=== PATIENT | male | born 1990 | race Hispanic/Latino ===

== ENCOUNTER 2016-10-09 02:20 | Emergency (ER) | payer MEDICAID, OTHER ==
[2016-10-09 02:37] VITALS: RESP 18
[2016-10-09 02:39] VITALS: BMI 22.7
[2016-10-09] MEDS ORDERED: Sodium Chloride 0.9% 2,000 ML IV STA (02:51)
--- NOTE | 2016-10-09 02:56 | ED PDOC ---
Arrival/HPI - General Chief Complaint: Lower Extremity Problem/Injury Time Seen by Provider: 10/09/16 02:37 Historian: Patient - History of Present Illness Narrative History of Present Illness (Text): 10/09/16 02:51 Chucho Mercado is a 26 year old male who presents to the emergency department for evaluation of 1 day duration of generalized body aches associated with subjective fever and chills. Patient reports he had a cough which has resolved. Denies chest pain, shortness of breath, nausea, vomiting, diarrhea, numbness/ weakness/swelling to lower extremity, urinary symptoms or any other complaints at this time. Time/Duration: Other (1 day) Symptom Course: Unchanged Severity Level: Mild Activities at Onset: Light Past Medical History - Provider Review Nursing Documentation Reviewed: Yes - Infectious Disease Hx of Infectious Diseases: None - Musculoskeletal/Rheumatological Other/Comment: Right shoulder injury 3 years ago - Psychiatric Hx Depression: Yes Hx Substance Use: No Other/Comment: alcohol abuse - Surgical History Other/Comment: LEG SX - Anesthesia Hx Anesthesia: No Hx Anesthesia Reactions: No Hx Malignant Hyperthermia: No - Suicidal Assessment Feels Threatened In Home Enviroment: No Family/Social History - Physician Review Nursing Documentation Reviewed: Yes Family/Social History: No Known Family HX Smoking Status: Light Smoker < 10 Cigarettes Daily Hx Alcohol Use: No Hx Substance Use: No Substance used: marijuana Allergies/Home Meds Allergies/Adverse Reactions: Allergies No Known Allergies Allergy (Verified 12/24/15 01:49) Home Medications: Home Meds Medication Instructions Recorded Confirmed No Known Home Med 10/09/16 10/09/16 Physical Exam - Physical Exam Narrative Physical Exam (Text): - Review of Systems Constitutional: Present: Subjective fever, chills, generalized body aches Eyes: Normal ENT: Normal Respiratory: Present: Cough (resolved) absent: SOB, Sputum Cardiovascular: Normal absent: Chest pain, Palpitations, Syncope Gastrointestinal: Normal absent: Abdominal pain, Diarrhea, Nausea, Vomiting Genitourinary: Normal. absent: Dysuria, Frequency, Hematuria Musculoskeletal: Normal. absent: Arthralgias, Back Pain, Neck Pain Skin: Normal Neurological: Normal absent: Focal Weakness Endocrine: Normal Hemo/Lymphatic: Normal Psychiatric: Normal - Physical exam Patient appears age appropriate, speaking full sentences without difficulty - Systems Exam Head: Present: Atraumatic, Normocephalic Pupils: Present: PERRL Extraocular Muscles: Present: EOMI Conjunctiva: Present: Normal Mouth: Present: Moist Mucous Membranes Neck: Present: Normal Range of Motion. No: MIDLINE TENDERNESS, Paraspinal Tenderness Respiratory/Chest: Present: Clear to Auscultation, Good Air Exchange. No: Respiratory Distress, Accessory Muscle Use, Tachypneic Cardiovascular: Present: Regular Rate and Rhythm, Normal S1, S2, Peripheral Pulses Present. No: Murmurs Abdomen: Present: Normal Bowel Sounds, No: Tenderness, Peritoneal Signs, Rebound, Guarding, Distention Back: Present: Normal Inspection. No: Midline Tenderness, Paraspinal Tenderness Upper Extremity: Present: Normal Inspection. No: Cyanosis, Edema Lower Extremity: Present: Normal Inspection. Neurovascular intact. No: Edema, Erythema, Tenderness, Asymmetry. Neurological: Present: GCS=15, Speech Normal, cranial nerves II through XII fully intact with no cerebellar abnormality, neuro-sensory fully intact. No focal neurological deficits. Skin: Present: Warm, Dry, Normal Color. No: Rashes Lymphatic: Present: OX3, NI, NC Psychiatric: Present: Alert, Oriented x 3, Normal Insight, Normal Concentration Vital Signs Reviewed: Yes Vital Signs Temp Pulse Resp BP Pulse Ox 10/09/16 04:08 99 F 96 H 18 126/78 98 10/09/16 02:49 101.8 F H 10/09/16 02:36 99.7 F H 114 H 18 133/79 97 Temperature: Afebrile Blood Pressure: Normal Pulse: Tachycardic Respiratory Rate: Normal Appearance: Positive for: Well-Appearing, Non-Toxic, Comfortable Pain Distress: None Mental Status: Positive for: Alert and Oriented X 3 Medical Decision Making ED Course and Treatment: 10/09/16 02:57 Impression: A 26 year old male who presents to the ed complaining of generalized body aches with subjective fever, and chills for 1 day. On PE, there is no swelling, erythema or tenderness to the lower extremities. Plan: -- Labs -- Chest X-ray -- IV fluids -- Toradol -- Blood culture -- Urine culture -- Influenza -- Urinalysis -- Reassess and disposition Progress Notes: 10/09/16 04:26 Chest xray interpreted by ED physician shows no pneumothorax, no cardiomegaly, no infiltrates 10/09/16 06:14 Patient's sodium and chloride has been low. Received 2 L of normal saline. On reevaluation patient reported relief, states he feels much better. Requested to be discharged home. Previous records reviewed, she has been in the emergency department for alcohol intoxication Currently pt is ANOx3 to person, place, and time. Has good insight and judgment. Denies suicidal or homicidal ideations. Pt has steady gait, ambulates without difficulty, not slurring speech. Pt able to tolerate PO without any difficulty. Patient denies any complaints at this time. Patient is not tremulous , not tachycardic, no signs or symptoms of alcohol withdrawal. Pt states he understands to return to the ER right away for new or worsening symptoms or for inability to f/u with PMD or specialist as instructed. Patient states that he fully agrees with and understands discharge instructions. States that he agrees with the plan and disposition. Verbalized and repeated discharge instructions and plan. I have given the patient opportunity to ask any additional questions. - Lab Interpretations Lab Results: 10/09/16 03:18 10/09/16 03:18 Lab Results 10/09/16 03:18: WBC 11.0 D, RBC 4.34, Hgb 13.5 L, Hct 38.8 L, MCV 89.4, MCH 31.1, MCHC 34.8, RDW 13.2, Plt Count 223, MPV 9.2, Gran % 82.4 H, Lymph % (Auto ) 5.3 L, Barry % (Auto) 12.0 H, Eos % (Auto) 0.1 L, Baso % (Auto) 0.2, Gran # 9.10 H, Lymph # 0.6 L, Barry # 1.3 H, Eos # 0.0, Baso # 0.02, Sodium 128 L, Potassium 3.9, Chloride 95 L, Carbon Dioxide 25, Anion Gap 12, BUN 21, Creatinine 0.9, Est GFR ( Amer) > 60, Est GFR (Non-Af Amer) > 60, Random Glucose 105, Calcium 9.9, Total Bilirubin 0.9, AST 46, ALT 24, Alkaline Phosphatase 80, Total Protein 8.1, Albumin 4.4, Globulin 3.6, Albumin/Globulin Ratio 1.2 10/09/16 03:10: Influenza Typ A,B (EIA) Negative for flu a/b I have reviewed the lab results: Yes - RAD Interpretation Radiology Orders: 10/09/16 02:51 CHEST PORTABLE [RAD] Stat - Medication Orders Current Medication Orders: Discontinued Medications Sodium Chloride (Sodium Chloride 0.9%) 2,000 mls @ 1,000 mls/hr IV .Q2H STA Stop: 10/09/16 04:50 Last Admin: 10/09/16 03:39 Dose: 1,000 MLS/HR eMAR Start Stop Document 10/09/16 03:39 RJR (Rec: 10/09/16 03:40 [facility] [id number]) Intravenous Solution Start Date 10/09/16 Start Time 03:39 End Date 10/09/16 End time 05:39 Total Infusion Time 120 Ketorolac Tromethamine (Toradol) 15 mg IVP STAT STA Stop: 10/09/16 02:52 Last Admin: 10/09/16 03:40 Dose: 15 MG IVP Administration Document 10/09/16 03:40 RJR (Rec: 10/09/16 03:40 [facility] [id number]) Charges for Administration # of IVP Administrations 1 - Scribe Statement The provider has reviewed the documentation as recorded by the Linda Cedeno Provider Attestation: All medical record entries made by the Linda were at my direction and personally dictated by me. I have reviewed the chart and agree that the record accurately reflects my personal performance of the history, physical exam, medical decision making, and the department course for this patient. I have also personally directed, reviewed, and agree with the discharge instructions and disposition. Disposition/Present on Arrival - Present on Arrival Any Indicators Present on Arrival: No History of DVT/PE: No History of Uncontrolled Diabetes: No Urinary Catheter: No History of Decub. Ulcer: No History Surgical Site Infection Following: None - Disposition Have Diagnosis and Disposition been Completed?: Yes Diagnosis: Arthralgia Disposition: HOME/ ROUTINE Disposition Time: 06:17 Patient Plan: Discharge Condition: GOOD Discharge Instructions (ExitCare): Arthralgia (ED), Alcohol Intoxication (ED) Additional Instructions: PLEASE RETURN TO THE EMERGENCY DEPARTMENT FOR NEW OR WORSENING SYMPTOMS. RETURN RIGHT AWAY IF YOU CANNOT FOLLOW UP WITH YOUR PRIMARY CARE DOCTOR, CLINIC, OR SPECIALIST IN 1-2 DAYS. Referrals: Lizz Cabrera MD [Staff Provider] - Follow up with primary [facility] at [facility] [place] [Outside] - Follow up with primary Alcoholics Anonymous [Outside] - Follow up with primary
[2016-10-09 03:51] LABS: ADD MANUAL DIFF? NO
[2016-10-09 03:58] LABS: BASO # 0.02 [, K/mm3] (0.0-2.0); BASO % 0.2 % (0.0-3.0); EOS % 0.1 % (1.5-5.0); GRAN % 82.4 % (50.0-68.0); HEMATOCRIT 38.8 % (42.0-52.0); LYMPH # 0.6 (1.2-3.4); LYMPH % 5.3 % (22.0-35.0); MEAN CELL VOLUME 89.4 fL (80.0-105.0); MEAN CORPUSCULAR HEMOGLOBIN 31.1 pg (25.0-35.0); MEAN CORPUSCULAR HGB CONC 34.8 g/dl (31.0-37.0); MEAN PLATELET VOLUME 9.2 fl (7.0-11.0); MONO # 1.3 (0.1-0.6); PLATELET COUNT 223 [, 10^3/uL] (120.0-450.0); RED CELL DISTRIBUTION WIDTH 13.2 % (11.5-14.5)
[2016-10-09 04:04] LABS: ALB/GLOB RATIO 1.2 (1.1-1.8); ALKALINE PHOSPHATASE 80 U/L (38-133); ALT/SGPT 24 U/L (7-56); AST/SGOT 46 U/L (15-59); BILIRUBIN,TOTAL 0.9 mg/dL (0.2-1.3); BLOOD UREA NITROGEN 21 mg/dL (7-21); CALCIUM 9.9 mg/dL (8.4-10.5); CARBON DIOXIDE 25 mmol/L (21-33); CHLORIDE 95 mmol/L (98-107); GFR AFRICAN-AMERICAN > 60; GLUCOSE,RANDOM 105 mg/dL (70-110); POTASSIUM 3.9 mmol/L (3.6-5.0); SODIUM 128 mmol/L (132-148); TOTAL PROTEIN 8.1 g/dL (5.8-8.3)
[2016-10-09 04:08] VITALS: BP 126/78; PULSE 96; TEMP 99; O2SAT 98
--- NOTE | 2016-10-09 08:53 | RAD ---
HISTORY: cough COMPARISON: No prior. FINDINGS: LUNGS: No active pulmonary disease. PLEURA: No significant pleural effusion identified, no pneumothorax apparent. CARDIOVASCULAR: Normal. OSSEOUS STRUCTURES: No significant abnormalities. VISUALIZED UPPER ABDOMEN: Normal. OTHER FINDINGS: None. IMPRESSION: No active disease.
== END 2016-10-09 06:26 | disposition home or self-care (01) ==
LOC: ED 02:20
DX: M79.1 Myalgia (principal)
CPT/HCPCS: 71010; 80053; 85025; 87040; 87804; 96361; 96374; 99283; J1885; J7040

== ENCOUNTER 2016-11-05 15:21 | Observation (INO) | payer MEDICAID, OTHER ==
[2016-11-05 15:36] VITALS: TEMP 98.2
[2016-11-05 15:40] VITALS: BMI 25.0
--- NOTE | 2016-11-05 16:11 | ED PDOC ---
Arrival/HPI - General Chief Complaint: Altered Mental Status Time Seen by Provider: 11/05/16 15:40 Historian: EMS EM Caveat: Intoxicated - History of Present Illness Narrative History of Present Illness (Text): 11/05/16 16:05 A 26 year old male, whose past medical history includes alcohol abuse, is brought into the emergency department via EMS for public intoxication. EMS states the patient is drowsy but arousable. HPI and ROS limited due to intoxication. Time/Duration: Prior to Arrival Symptom Onset: Sudden Symptom Course: Unchanged Quality: Other Activities at Onset: Rest Context: Other Past Medical History - Infectious Disease Hx of Infectious Diseases: None - Cardiac Hx Cardiac Disorders: No - Pulmonary Hx Respiratory Disorders: No - Neurological Hx Neurological Disorder: No - HEENT Hx HEENT Disorder: No - Renal Hx Renal Disorder: No - Endocrine/Metabolic Hx Endocrine Disorders: No - Hematological/Oncological Hx Blood Disorders: No - Integumentary Hx Dermatological Disorder: No - Musculoskeletal/Rheumatological Hx Musculoskeletal Disorders: Yes Hx Arthritis: No Other/Comment: Right shoulder injury 3 years ago - Gastrointestinal Hx Gastrointestinal Disorders: No - Genitourinary/Gynecological Hx Genitourinary Disorders: No - Psychiatric Hx Psychophysiologic Disorder: Yes Hx Depression: Yes Hx Substance Use: No (pt denies) Other/Comment: alcohol abuse - Surgical History Hx Musculoskeletal Surgery: Yes Other/Comment: LEG SX - Anesthesia Hx Anesthesia: No Hx Anesthesia Reactions: No Hx Malignant Hyperthermia: No - Suicidal Assessment Feels Threatened In Home Enviroment: No Family/Social History - Physician Review Nursing Documentation Reviewed: Yes Family/Social History: Unknown Family HX Smoking Status: Heavy Smoker > 10 Cigarettes Daily Hx Alcohol Use: Yes Hx Substance Use: No (pt denies) Substance used: marijuana Allergies/Home Meds Allergies/Adverse Reactions: Allergies No Known Allergies Allergy (Verified 11/05/16 15:36) Home Medications: Home Meds Medication Instructions Recorded Confirmed Paroxetine HCl [Paxil] 40 mg PO DAILY 11/05/16 11/05/16 busPIRone [Buspar] 15 mg PO HS 11/05/16 11/05/16 Review of Systems - Review of Systems Systems not reviewed;Unavailable: Intoxicated Physical Exam Vital Signs Reviewed: Yes Vital Signs Temp Pulse Resp BP Pulse Ox 11/05/16 22:00 70 16 120/71 95 11/05/16 20:00 69 16 114/70 96 04/20/17 18:24 87 16 128/80 98 11/05/16 17:42 71 18 128/85 99 11/05/16 16:20 72 16 119/77 98 11/05/16 15:22 98.2 F 78 14 130/83 98 Temperature: Afebrile Blood Pressure: Normal Pulse: Regular Respiratory Rate: Normal Appearance: Positive for: Well-Appearing Pain Distress: None Mental Status: Positive for: other (somnolent but arousable) - Systems Exam Head: Present: Atraumatic, Normocephalic Pupils: Present: Other (dilated pupils) Conjunctiva: Present: Normal Mouth: Present: Moist Mucous Membranes, Other (alcohol on breath) Neck: Present: Normal Range of Motion Respiratory/Chest: Present: Clear to Auscultation, Good Air Exchange. No: Respiratory Distress, Accessory Muscle Use Cardiovascular: Present: Regular Rate and Rhythm, Normal S1, S2. No: Murmurs Abdomen: Present: Normal Bowel Sounds. No: Tenderness, Distention, Peritoneal Signs Back: No: CVA Tenderness Upper Extremity: Present: Normal Inspection. No: Cyanosis, Edema Lower Extremity: Present: Normal Inspection. No: Edema Neurological: Present: Other (unable to perfomr at this time) Skin: Present: Warm, Dry, Normal Color. No: Rashes Psychiatric: Present: Alert, Other (arousable with sternal rub) Medical Decision Making ED Course and Treatment: 11/05/16 16:05 Impression: A 26 year old intoxicated male. Differential Diagnosis include but are not limited to: alcohol abuse Plan: -- Labs -- Urinalysis -- Reassess and disposition pts girlfriend came by and states pt drinks a lot and also has history of depression. did not know of other ingestions. Prior Visits: Notes and results from previous visits were reviewed. The patient last presented to the emergency department on 11/02/16 for public intoxication. ETOH elevated, order thiamine. CT head no acute findings noted pt more arousable but still falls asleep at times [id number] signed out to Dr Mendes pending reeval and dispo 11/05/16 22:25 11/05/16 22:26 - Lab Interpretations Lab Results: 11/05/16 16:00 11/05/16 16:00 Lab Results 11/05/16 16:44: Urine Color Straw, Urine Appearance Clear, Urine pH 6.5, Ur Specific Gardner <= 1.005, Urine Protein Negative, Urine Glucose (UA) Negative, Urine Ketones Negative, Urine Blood Trace-lysed H, Urine Nitrate Negative, Urine Bilirubin Negative, Urine Urobilinogen 0.2, Ur Leukocyte Esterase Negative , Urine RBC 0 - 2, Urine WBC Negative, Ur Epithelial Cells 0 - 2, Urine Bacteria Neg, Urine Opiates Screen Negative, Urine Methadone Screen Negative, Ur Barbiturates Screen Negative, Ur Phencyclidine Scrn Negative, Ur Amphetamines Screen Negative, U Benzodiazepines Scrn Negative, U Oth Cocaine Metabols Negative, U Cannabinoids Screen Negative 11/05/16 16:00: WBC 8.6 D, RBC 4.69, Hgb 14.6, Hct 41.4 L, MCV 88.3, MCH 31.1, MCHC 35.3, RDW 13.3, Plt Count 303, MPV 8.6, Gran % 69.7 H, Lymph % (Auto) 24.3 , Jessamine % (Auto) 4.7, Eos % (Auto) 1.1 L, Baso % (Auto) 0.2, Gran # 5.97, Lymph # 2.1, Jessamine # 0.4, Eos # 0.1, Baso # 0.02, Sodium 144, Potassium 3.5 L, Chloride 103, Carbon Dioxide 27, Anion Gap 18, BUN 8, Creatinine 0.7, Est GFR ( Amer) > 60, Est GFR (Non-Af Amer) > 60, Random Glucose 89, Calcium 9.8, Total Bilirubin 0.6, AST 33, ALT 33, Alkaline Phosphatase 70, Total Protein 8.3 , Albumin 4.5, Globulin 3.8, Albumin/Globulin Ratio 1.2, Salicylates < 1 L, Acetaminophen < 10.0 L, Alcohol, Quantitative 204 H I have reviewed the lab results: Yes - Medication Orders Current Medication Orders: Discontinued Medications Thiamine HCl (Vitamin B1 Tab) 100 mg PO STAT STA Stop: 11/05/16 21:34 ED OBSERVATION Date of observation admission: 11/05/16 Time of observation admission: 16:05 - Observation admission statement Patient is being placed in observation because:: alcohol intoxication - Goals of Observation Goals of observation are:: sobriety - Progress Note Progress Note: 11/05/16 16:30 Patient is resting comfortable. 11/05/16 18:48 Patient alcohol level is elevated. He is resting comfortable and in no acute distress. 11/05/16 21:28 CT Head results reviewed: FINDINGS: Brain: Unremarkable. No hemorrhage. No significant white matter disease. No edema. Normal palma white matter interfaces are present. Ventricles: Unremarkable. No ventriculomegaly. Bones/joints: Unremarkable. No acute fracture. Chronic nasal fractures are present. This Soft tissues: Unremarkable. Sinuses: Unremarkable as visualized. No acute sinusitis. Mastoid air cells: Unremarkable as visualized. No mastoid effusion. IMPRESSION: No acute findings. No bleed, no signs of acute infarct. Study partially limited secondary to motion - Scribe Statement The provider has reviewed the documentation as recorded by the Scribe Dante Bledsoe Provider Scribe Attestation: All medical record entries made by the Scribe were at my direction and personally dictated by me. I have reviewed the chart and agree that the record accurately reflects my personal performance of the history, physical exam, medical decision making, and the department course for this patient. I have also personally directed, reviewed, and agree with the discharge instructions and disposition. Disposition/Present on Arrival - Present on Arrival Any Indicators Present on Arrival: No History of DVT/PE: No History of Uncontrolled Diabetes: No Urinary Catheter: No History of Decub. Ulcer: No History Surgical Site Infection Following: None - Disposition Have Diagnosis and Disposition been Completed?: No Diagnosis: Alcohol intoxication Disposition Time: 22:00 Patient Plan: Transfer To (dr selma melara) Patient Problems: Current Active Problems Problem Status Diagnosed Alcohol intoxication Acute Condition: STABLE
[2016-11-05 16:28] LABS: ADD MANUAL DIFF? NO
[2016-11-05 16:31] LABS: BASO # 0.02 K/mm3 (0.0-2.0); BASO % 0.2 % (0.0-3.0); EOS # 0.1 (0.0-0.7); EOS % 1.1 % (1.5-5.0); GRAN # 5.97 (1.4-6.5); GRAN % 69.7 % (50.0-68.0); HEMATOCRIT 41.4 % (42.0-52.0); LYMPH # 2.1 (1.2-3.4); LYMPH % 24.3 % (22.0-35.0); MEAN CELL VOLUME 88.3 fL (80.0-105.0); MEAN CORPUSCULAR HEMOGLOBIN 31.1 pg (25.0-35.0); MEAN CORPUSCULAR HGB CONC 35.3 g/dl (31.0-37.0); MEAN PLATELET VOLUME 8.6 fl (7.0-11.0); MONO # 0.4 (0.1-0.6); MONO % 4.7 % (1.0-6.0); PLATELET COUNT 303 10^3/uL (120.0-450.0); RED CELL DISTRIBUTION WIDTH 13.3 % (11.5-14.5); WHITE BLOOD COUNT 8.6 10^3/ul (4.5-11.0)
[2016-11-05 16:50] LABS: PH,URINE 6.5 (4.7-8.0); URINE BILIRUBIN NEGATIVE (NEGATIVE); URINE BLOOD TRACE-LYSED (NEGATIVE); URINE GLUCOSE (UA) NEGATIVE (NEGATIVE); URINE KETONE NEGATIVE (NEGATIVE); URINE LEUKOCYTE ESTERASE NEGATIVE Leu/uL (NEGATIVE); URINE PROTEIN NEGATIVE mg/dL (<30 mg/dL); URINE UROBILINOGEN 0.2 E.U./dL (<1 E.U./dL)
[2016-11-05 16:58] LABS: URINE APPEARANCE CLEAR (CLEAR); URINE COLOR STRAW (YELLOW)
[2016-11-05 17:01] LABS: ALB/GLOB RATIO 1.2 (1.1-1.8); ALKALINE PHOSPHATASE 70 U/L (38-133); ALT/SGPT 33 U/L (7-56); AST/SGOT 33 U/L (15-59); BILIRUBIN,TOTAL 0.6 mg/dL (0.2-1.3); BLOOD UREA NITROGEN 8 mg/dL (7-21); CALCIUM 9.8 mg/dL (8.4-10.5); CARBON DIOXIDE 27 mmol/L (21-33); CHLORIDE 103 mmol/L (98-107); GFR AFRICAN-AMERICAN > 60; GLUCOSE,RANDOM 89 mg/dL (70-110); POTASSIUM 3.5 mmol/L (3.6-5.0); SODIUM 144 mmol/L (132-148); TOTAL PROTEIN 8.3 g/dL (5.8-8.3)
[2016-11-05 17:19] LABS: URINE BACTERIA NEG (NEG); URINE EPITHELIAL CELLS 0 - 2 /hpf (0-5); URINE RBC 0 - 2 /hpf (0-2); URINE WBC NEGATIVE /hpf (0-6)
[2016-11-05 23:42] VITALS: BP 138/85; PULSE 80; RESP 18; O2SAT 99
--- NOTE | 2016-11-06 07:09 | CT ---
PROCEDURE: CT HEAD WITHOUT CONTRAST. HISTORY: alcohol intox, somnolent COMPARISON: None available TECHNIQUE: Axial computed tomography images were obtained through the head/brain without intravenous contrast. Radiation dose: Total exam DLP = 774.23 mGy-cm. This CT exam was performed using one or more of the following dose reduction techniques: Automated exposure control, adjustment of the mA and/or kV according to patient size, and/or use of iterative reconstruction technique. FINDINGS: Streak artifact obscures evaluation of the skullbase. HEMORRHAGE: No intracranial hemorrhage. BRAIN: No mass effect or edema. No atrophy or chronic microvascular ischemic changes.Please note that MRI with diffusion imaging is more sensitive in the detection of acute ischemic event. VENTRICLES: No hydrocephalus. CALVARIUM: Unremarkable. PARANASAL SINUSES: Mild bilateral mucosal thickening of the maxillary sinuses. MASTOID AIR CELLS: Unremarkable as visualized. No inflammatory changes. OTHER FINDINGS: Chronic appearing bilateral nasal bone fracture deformities. IMPRESSION: No acute intracranial pathology identified. Preliminary impression was provided by virtual radiologic.
--- NOTE | 2016-11-06 13:32 | CARD ---
APPROVED REPORT EKG Measurement Heart [id number] <Conclusion> Normal sinus rhythm Normal ECG
== END 2016-11-05 21:35 | disposition home or self-care (01) ==
LOC: ED 15:21 → EROBSV 17:32
PROVIDERS: ADMIT Emergency Medicine; ATTEND Emergency Medicine
DX: F10.129 Alcohol abuse with intoxication, unspecified (principal); Y90.7 Blood alcohol level of 200-239 mg/100 ml
CPT/HCPCS: 70450; 80053; 80320; 80324; 80329; 80345; 80346; 80349; 80353; 80358; 80361; 81001; 82948; 83992; 85025; 93005; 99285; G0378

== ENCOUNTER 2016-11-12 15:50 | Observation (INO) | payer OTHER ==
[2016-11-12 15:59] VITALS: BMI 23.0
[2016-11-12 16:07] LABS: ADD MANUAL DIFF? NO
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
[2016-11-12] MEDS ORDERED: Sodium Chloride 0.9% 1,000 ML IV STA ×2 (16:15→18:06)
[2016-11-12 16:28] VITALS: TEMP 98.1
[2016-11-12 16:29] LABS: BASO # 0.02 K/mm3 (0.0-2.0); BASO % 0.2 % (0.0-3.0); EOS # 0.1 (0.0-0.7); EOS % 1.1 % (1.5-5.0); GRAN # 7.52 (1.4-6.5); GRAN % 72.7 % (50.0-68.0); HEMATOCRIT 41.9 % (42.0-52.0); LYMPH # 2.2 (1.2-3.4); LYMPH % 20.9 % (22.0-35.0); MEAN CORPUSCULAR HEMOGLOBIN 31.1 pg (25.0-35.0); MEAN CORPUSCULAR HGB CONC 35.3 g/dl (31.0-37.0); MONO # 0.5 (0.1-0.6); MONO % 5.1 % (1.0-6.0); PLATELET COUNT 241 10^3/uL (120.0-450.0); RED CELL DISTRIBUTION WIDTH 13.3 % (11.5-14.5); WHITE BLOOD COUNT 10.3 10^3/ul (4.5-11.0)
[2016-11-12 16:32] LABS: ALB/GLOB RATIO 1.4 (1.1-1.8); ALKALINE PHOSPHATASE 74 U/L (38-133); ALT/SGPT 37 U/L (7-56); AST/SGOT 109 U/L (15-59); BILIRUBIN,TOTAL 0.6 mg/dL (0.2-1.3); BLOOD UREA NITROGEN 10 mg/dL (7-21); CALCIUM 9.6 mg/dL (8.4-10.5); CARBON DIOXIDE 21 mmol/L (21-33); CHLORIDE 106 mmol/L (98-107); GFR AFRICAN-AMERICAN > 60; GLUCOSE,RANDOM 127 mg/dL (70-110); POTASSIUM 3.6 mmol/L (3.6-5.0); SODIUM 143 mmol/L (132-148)
[2016-11-12 16:34] LABS: INR 1.03 (0.93-1.08); PARTIAL THROMBOPLASTIN TIME 25.6 Seconds (23.7-30.8)
[2016-11-12 16:50] LABS: TROPONIN I < 0.01 ng/mL
[2016-11-12 17:14] LABS: URINE BILIRUBIN NEGATIVE (NEGATIVE); URINE BLOOD SMALL (NEGATIVE); URINE GLUCOSE (UA) NEGATIVE (NEGATIVE); URINE KETONE NEGATIVE (NEGATIVE); URINE LEUKOCYTE ESTERASE NEGATIVE Leu/uL (NEGATIVE); URINE PROTEIN NEGATIVE mg/dL (<30 mg/dL); URINE UROBILINOGEN 0.2 E.U./dL (<1 E.U./dL)
[2016-11-12 17:15] LABS: URINE APPEARANCE CLEAR (CLEAR); URINE COLOR STRAW (YELLOW)
[2016-11-12 17:51] LABS: URINE BACTERIA NEG (NEG); URINE EPITHELIAL CELLS 0 - 2 /hpf (0-5); URINE RBC 0 - 2 /hpf (0-2); URINE WBC 0 - 2 /hpf (0-6)
--- NOTE | 2016-11-12 18:05 | CARD ---
APPROVED REPORT EKG Measurement Heart [id number] <Conclusion> Sinus tachycardia Possible Left atrial enlargement RSR' or QR pattern in V1 suggests right ventricular conduction delay Borderline ECG
--- NOTE | 2016-11-12 18:06 | CT ---
PROCEDURE: CT HEAD WITHOUT CONTRAST. HISTORY: ams COMPARISON: None available. TECHNIQUE: Axial computed tomography images were obtained through the head/brain without intravenous contrast. Radiation dose: Total exam DLP = 725 mGy-cm. This CT exam was performed using one or more of the following dose reduction techniques: Automated exposure control, adjustment of the mA and/or kV according to patient size, and/or use of iterative reconstruction technique. FINDINGS: HEMORRHAGE: No intracranial hemorrhage. BRAIN: No mass effect or edema. No atrophy or chronic microvascular ischemic changes. VENTRICLES: Unremarkable. No hydrocephalus. CALVARIUM: Unremarkable. PARANASAL SINUSES: Unremarkable as visualized. No significant inflammatory changes. MASTOID AIR CELLS: Unremarkable as visualized. No inflammatory changes. OTHER FINDINGS: None. IMPRESSION: Normal CT of the Head.
[2016-11-12 19:29] VITALS: RESP 18
[2016-11-12] MEDS ORDERED: Sodium Chloride 0.9% 1,000 ML IV SCH (23:00)
[2016-11-13 03:24] VITALS: BP 123/75; PULSE 88; O2SAT 95
[2016-11-13 05:43] LABS: BLOOD UREA NITROGEN 12 mg/dL (7-21); CARBON DIOXIDE 27 mmol/L (21-33); CHLORIDE 109 mmol/L (98-107); GFR AFRICAN-AMERICAN > 60; GLUCOSE,RANDOM 81 mg/dL (70-110); POTASSIUM 4.6 mmol/L (3.6-5.0); SODIUM 143 mmol/L (132-148)
--- NOTE | 2016-11-13 08:47 | RAD ---
HISTORY: ams COMPARISON: None available. TECHNIQUE: Chest, one view. FINDINGS: LUNGS: Mild bilateral perihilar prominence. No focal consolidation. Please note that chest x-ray has limited sensitivity for the detection of pulmonary masses. PLEURA: No significant pleural effusion identified. No definite pneumothorax . CARDIOVASCULAR: The cardiomediastinal silhouette appears within normal limits of size. OSSEOUS STRUCTURES: No acute osseous abnormality identified. VISUALIZED UPPER ABDOMEN: Unremarkable. OTHER FINDINGS: None. IMPRESSION: Mild bilateral perihilar prominence.
== END 2016-11-13 06:26 | disposition home or self-care (01) ==
LOC: ED 15:50 → EDBD 16:44 → EROBSV 16:44 → MERGE 16:44
PROVIDERS: ADMIT Emergency Medicine; ATTEND Emergency Medicine
DX: F10.129 Alcohol abuse with intoxication, unspecified (principal); Y90.8 Blood alcohol level of 240 mg/100 ml or more
CPT/HCPCS: 36415; 70450; 71010; 80048; 80053; 80074; 80320; 80324; 80329; 80345; 80346; 80349; 80353; 80358; 80361; 81001; 82550; 82553; 82948; 83615; 83992; 84484; 85025; 85610; 85730; 87390; 93005; 96360; 96361; 99285; G0378; J7040

== ENCOUNTER 2016-11-30 15:41 | Emergency (ER) | payer MEDICAID, OTHER ==
[2016-11-30 15:42] VITALS: BMI 25.0
[2016-11-30 16:07] VITALS: TEMP 98.6
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
[2016-11-30 19:26] VITALS: BP 131/76; PULSE 78; RESP 18; O2SAT 98
== END 2016-11-30 19:29 | disposition home or self-care (01) ==
LOC: ED 15:41
DX: Z72.89 Other problems related to lifestyle (principal)

== ENCOUNTER 2017-02-20 15:52 | Observation (INO) | payer OTHER ==
[2017-02-20 16:28] VITALS: BMI 23.6
--- NOTE | 2017-02-20 17:00 | ED PDOC ---
Arrival/HPI - General Chief Complaint: Alcohol Ingestion Time Seen by Provider: 02/20/17 16:03 Historian: Patient EM Caveat: Intoxicated - History of Present Illness Narrative History of Present Illness (Text): 02/20/17 16:40 A 26 year old male, whose past medical history includes etoh abuse, is brought into the emergency department via EMS due to public intoxication. ROS: limited due to intoxication. Time/Duration: 4-6 hours Symptom Course: Unchanged Activities at Onset: Light Past Medical History - Provider Review Nursing Documentation Reviewed: Yes - Infectious Disease Hx of Infectious Diseases: None - Cardiac Hx Hypertension: No - Pulmonary Hx Respiratory Disorders: No - Neurological Hx Seizures: No - HEENT Hx HEENT Disorder: No - Renal Hx Renal Disorder: No - Endocrine/Metabolic Hx Endocrine Disorders: No - Hematological/Oncological Hx Blood Disorders: No - Integumentary Hx Dermatological Disorder: No - Musculoskeletal/Rheumatological Hx Fractures: Yes - Gastrointestinal Hx Gastritis: Yes - Genitourinary/Gynecological Hx Sexually Transmitted Diseases: No - Psychiatric Hx Anxiety: Yes Hx Depression: Yes Hx Substance Use: No (pt denies) - Surgical History Other/Comment: LEG SX - Anesthesia Hx Anesthesia: Yes Hx Anesthesia Reactions: No - Suicidal Assessment Feels Threatened In Home Enviroment: No Family/Social History - Physician Review Nursing Documentation Reviewed: Yes Family/Social History: No Known Family HX Smoking Status: Heavy Smoker > 10 Cigarettes Daily Hx Alcohol Use: Yes Hx Substance Use: No (pt denies) Substance used: marijuana Allergies/Home Meds Allergies/Adverse Reactions: Allergies No Known Allergies Allergy (Verified 02/20/17 16:25) Home Medications: Home Meds Medication Instructions Recorded Confirmed Paroxetine HCl [Paxil] 40 mg PO DAILY 11/05/16 02/20/17 busPIRone [Buspar] 15 mg PO HS 11/05/16 02/20/17 Review of Systems - Review of Systems Systems not reviewed;Unavailable: Intoxicated Physical Exam - Physical Exam Narrative Physical Exam (Text): PE for 26 year old Chucho Mercado is limited to intoxication. Patient is in no distress and has no evidence of trauma. Physical Exam Limitations: Intoxication Vital Signs Reviewed: Yes Vital Signs Temp Pulse Resp BP Pulse Ox 02/20/17 16:25 98.2 F 81 18 121/68 97 02/20/17 16:24 98.2 F 81 18 121/68 97 Temperature: Afebrile Blood Pressure: Normal Pulse: Regular Respiratory Rate: Normal Appearance: Positive for: Well-Appearing, Non-Toxic, Comfortable Pain Distress: None Mental Status: Positive for: other (Intoxicated ) - Systems Exam Head: Present: Atraumatic, Normocephalic Pupils: Present: PERRL Conjunctiva: Present: Normal Mouth: Present: Moist Mucous Membranes Pharnyx: Present: Normal. No: ERYTHEMA, EXUDATE Neck: Present: Normal Range of Motion Respiratory/Chest: Present: Clear to Auscultation, Good Air Exchange. No: Respiratory Distress, Accessory Muscle Use Cardiovascular: Present: Regular Rate and Rhythm, Normal S1, S2. No: Murmurs Abdomen: Present: Normal Bowel Sounds. No: Tenderness, Distention, Peritoneal Signs Back: Present: Normal Inspection Upper Extremity: Present: Normal Inspection. No: Cyanosis, Edema Lower Extremity: Present: Normal Inspection. No: Edema Neurological: Present: GCS=15, CN II-XII Intact, Speech Normal Skin: Present: Warm, Dry, Normal Color. No: Rashes Psychiatric: Present: Intoxicated Medical Decision Making ED Course and Treatment: 02/20/17 17:04 Impression: A 26 year old intoxicated male. Differential Diagnosis included but are not limited to: Intoxication Plan: -- Reassess and disposition Prior Visits: Notes and results from previous visits were reviewed. Patient was last seen on 02/14/17 for substance abuse and was discharged home. Progress Notes: ED OBSERVATION Discharge: Yes Date of observation admission: 02/20/17 Time of observation admission: 16:35 - Observation admission statement Patient is being placed in observation because:: he is intoxicated and needs observation till sobriety and disposition discernment. - Goals of Observation Goals of observation are:: Sobriety - Progress Note Progress Note: 02/20/17 16:45 Patient is seen for intoxication and is pending sobriety. 02/20/17 18:03 Patient is resting comfortably, still pending sobriety. 02/20/17 20:00 Patient is resting comfortably. 02/20/17 21:15 Patient is signficantly more awake at this time and talkative 02/20/17 21:40 Patient is fully sober, awake, alert, and oriented x 3. His gait is normal with normal speech. No evidence of trauma. No SI or HI - ok for d/c. - PA / [employer] SAL[employer] MANAGER / Resident Statement MD/DO has reviewed & agrees with the documentation as recorded. - Scribe Statement The provider has reviewed the documentation as recorded by the Scribe Anni Rodriguez Provider Scribe Attestation: All medical record entries made by the Scribe were at my direction and personally dictated by me. I have reviewed the chart and agree that the record accurately reflects my personal performance of the history, physical exam, medical decision making, and the department course for this patient. I have also personally directed, reviewed, and agree with the discharge instructions and disposition. Disposition/Present on Arrival - Present on Arrival Any Indicators Present on Arrival: No History of DVT/PE: No History of Uncontrolled Diabetes: No Urinary Catheter: No History of Decub. Ulcer: No History Surgical Site Infection Following: None - Disposition Have Diagnosis and Disposition been Completed?: Yes Diagnosis: Alcohol intoxication Disposition: HOME/ ROUTINE Disposition Time: 21:40 Patient Plan: Discharge Condition: GOOD
[2017-02-20 21:48] VITALS: BP 130/80; PULSE 89; RESP 16; TEMP 98.9
[2017-02-20 21:52] VITALS: O2SAT 98
== END 2017-02-20 21:42 | disposition home or self-care (01) ==
LOC: ED 15:52 → EROBSV 16:35
PROVIDERS: ADMIT Emergency Medicine; ATTEND Emergency Medicine
DX: F10.129 Alcohol abuse with intoxication, unspecified (principal)
CPT/HCPCS: 82948; 99283; G0378

== ENCOUNTER 2017-02-21 03:02 | Observation (INO) | payer OTHER ==
--- NOTE | 2017-02-21 03:04 | ED PDOC ---
Arrival/HPI - General Historian: Patient, EMS - History of Present Illness Time/Duration: Other (tonight) Symptom Onset: Gradual Symptom Course: Unchanged Activities at Onset: Light Context: Street <Bruce Abreu - Last Filed: 02/21/17 06:06> <Jesus Mendes - Last Filed: 02/21/17 12:34> - General Time Seen by Provider: 02/21/17 03:02 - History of Present Illness Narrative History of Present Illness (Text): 02/21/17 03:03 Chucho Mercado is a 26 year old male, whose past medical history includes alcohol abuse, who presents to the Emergency department brought in by EMS for alcohol intoxication. Patient was seen in the Emergency department yesterday for same complaint. Patient denies any fever, chills, chest pain, shortness of breath, nausea, vomiting, diarrhea, urinary symptoms, back pain, neck pain, headache, dizziness, or any other complaints. (Bruce Abreu) Past Medical History - Provider Review Nursing Documentation Reviewed: Yes - Infectious Disease Hx of Infectious Diseases: None - Cardiac Hx Hypertension: No - Pulmonary Hx Respiratory Disorders: No - Neurological Hx Seizures: No - HEENT Hx HEENT Disorder: No - Renal Hx Renal Disorder: No - Endocrine/Metabolic Hx Endocrine Disorders: No - Hematological/Oncological Hx Blood Disorders: No - Integumentary Hx Dermatological Disorder: No - Musculoskeletal/Rheumatological Hx Fractures: Yes - Gastrointestinal Hx Gastritis: Yes - Genitourinary/Gynecological Hx Sexually Transmitted Diseases: No - Psychiatric Hx Anxiety: Yes Hx Depression: Yes Hx Substance Use: No (pt denies) - Surgical History Other/Comment: LEG SX - Anesthesia Hx Anesthesia: Yes Hx Anesthesia Reactions: No - Suicidal Assessment Feels Threatened In Home Enviroment: No <Bruce Abreu - Last Filed: 02/21/17 06:06> Family/Social History - Physician Review Nursing Documentation Reviewed: Yes Family/Social History: Unknown Family HX Smoking Status: Heavy Smoker > 10 Cigarettes Daily Hx Alcohol Use: Yes Hx Substance Use: No (pt denies) Substance used: marijuana <Bruce Abreu - Last Filed: 02/21/17 06:06> Allergies/Home Meds <Bruce Abreu - Last Filed: 02/21/17 06:06> <Jesus Mendes - Last Filed: 02/21/17 12:34> Allergies/Adverse Reactions: Allergies No Known Allergies Allergy (Verified 02/21/17 03:05) Home Medications: Home Meds Medication Instructions Recorded Confirmed Paroxetine HCl [Paxil] 40 mg PO DAILY 11/05/16 02/21/17 busPIRone [Buspar] 15 mg PO HS 11/05/16 02/21/17 Review of Systems - Physician Review All systems were reviewed & negative as marked: Yes - Review of Systems Constitutional: Normal. absent: Fevers Eyes: Normal ENT: Normal Respiratory: Normal. absent: SOB, Cough Cardiovascular: Normal. absent: Chest Pain Gastrointestinal: Normal. absent: Abdominal Pain, Diarrhea, Nausea, Vomiting Genitourinary Male: Normal. absent: Dysuria, Frequency, Hematuria, Urinary Output Changes Musculoskeletal: Normal. absent: Back Pain, Neck Pain Skin: Normal. absent: Rash Neurological: Normal. absent: Headache, Dizziness Endocrine: Normal Hemo/Lymphatic: Normal Psychiatric: Normal <Bruce Abreu - Last Filed: 02/21/17 06:06> Physical Exam Vital Signs Reviewed: Yes Temperature: Afebrile Blood Pressure: Normal Pulse: Regular Respiratory Rate: Normal Appearance: Positive for: Well-Appearing, Non-Toxic, Comfortable Pain Distress: None - Systems Exam Head: Present: Atraumatic, Normocephalic Pupils: Present: PERRL Extroacular Muscles: Present: EOMI Conjunctiva: Present: Normal Mouth: Present: Moist Mucous Membranes Neck: Present: Normal Range of Motion Respiratory/Chest: Present: Clear to Auscultation, Good Air Exchange. No: Respiratory Distress, Accessory Muscle Use Cardiovascular: Present: Regular Rate and Rhythm, Normal S1, S2. No: Murmurs Abdomen: Present: Normal Bowel Sounds. No: Tenderness, Distention, Peritoneal Signs Back: Present: Normal Inspection Upper Extremity: Present: Normal Inspection. No: Cyanosis, Edema Lower Extremity: Present: Normal Inspection. No: Edema Neurological: Present: GCS=15, CN II-XII Intact Skin: Present: Warm, Dry, Normal Color. No: Rashes Psychiatric: Present: Alert <Bruce Abreu - Last Filed: 02/21/17 06:06> Medical Decision Making <Bruce Abreu - Last Filed: 02/21/17 06:06> <Jesus Mendes - Last Filed: 02/21/17 12:34> ED Course and Treatment: 02/21/17 03:03 Impression: 26 year old male brought in for public intoxication tonight. Differential Diagnosis included but are not limited to: alcohol intoxication Plan: -- Reassess and disposition Prior Visits: Notes and results from previous visits were reviewed. On 02/20/2017, pt was seen in the Emergency department for alcohol intoxication and discharged home. Progress Notes: (Bruce Abreu) ED OBSERVATION Date of observation admission: 02/21/17 Time of observation admission: 03:08 <Bruce Abreu - Last Filed: 02/21/17 06:06> Discharge: Yes <Jesus Mendes - Last Filed: 02/21/17 12:34> - Observation admission statement Patient is being placed in observation because:: alcohol intoxication (Bruce Abreu) - Goals of Observation Goals of observation are:: sobriety, observe for signs of withdrawal (Bruce Abreu) - Progress Note Progress Note: 02/21/17 03:09 Pt resting comfortably, in no acute distress. 02/21/17 05:06 Pt resting comfortably, in no acute distress. (Bruce Abreu) 02/21/17 07:34 sign out from overnight, pt pending sobriety on examination this morning, pt in no distress, resting comfortably in bed, arousable, denies complaints. 02/21/17 12:26 Pt has been closely monitored throughout the stay in the ED. Currently pt is ANOx3 to person, place, and time. Has good insight and judgment. Denies suicidal or homicidal ideations. Pt has steady gait, ambulates without difficulty, not slurring speech. Pt able to tolerate PO without any difficulty. Patient denies any complaints at this time. Patient is not tremulous, not tachycardic, no signs or symptoms of alcohol withdrawal. Pt states he understands to return to the ER right away for new or worsening symptoms or for inability to f/u with PMD or specialist as instructed. Patient states he does not want any discharge instructions. States that he agrees with the plan and disposition. I have given the patient opportunity to ask any additional questions. (Jesus Mendes) - Scribe Statement The provider has reviewed the documentation as recorded by the Scribe <Bruce Abreu - Last Filed: 02/21/17 06:06> <Jesus Mendes - Last Filed: 02/21/17 12:34> - Scribe Statement Mary Ann Guy Provider Scribe Attestation: All medical record entries made by the Scribe were at my direction and personally dictated by me. I have reviewed the chart and agree that the record accurately reflects my personal performance of the history, physical exam, medical decision making, and the department course for this patient. I have also personally directed, reviewed, and agree with the discharge instructions and disposition. (Bruce Abreu) Disposition/Present on Arrival - Present on Arrival History of DVT/PE: No History of Uncontrolled Diabetes: No Urinary Catheter: No History Surgical Site Infection Following: None <Bruce Abreu - Last Filed: 02/21/17 06:06> - Present on Arrival Any Indicators Present on Arrival: No - Disposition Have Diagnosis and Disposition been Completed?: Yes Disposition Time: 03:08 Patient Plan: Observation <Jesus Mendes - Last Filed: 02/21/17 12:34> - Disposition Diagnosis: Alcohol intoxication Disposition: HOME/ ROUTINE Condition: GOOD
[2017-02-21 03:05] VITALS: BMI 23.3
[2017-02-21 06:01] VITALS: RESP 18
[2017-02-21 12:59] VITALS: PULSE 78; TEMP 98.6
[2017-02-21 13:01] VITALS: BP 118/79; O2SAT 99
== END 2017-02-21 12:30 | disposition home or self-care (01) ==
LOC: ED 03:02 → EROBSV 03:08
PROVIDERS: ADMIT Emergency Medicine; ATTEND Emergency Medicine
DX: F10.129 Alcohol abuse with intoxication, unspecified (principal)
CPT/HCPCS: 99283; G0378

== ENCOUNTER 2017-02-21 16:23 | Observation (INO) | payer OTHER ==
[2017-02-21 16:34] VITALS: BMI 22.7
--- NOTE | 2017-02-21 17:11 | ED PDOC ---
Arrival/HPI - General Historian: Patient - History of Present Illness Symptom Onset: Sudden Symptom Course: Unchanged Activities at Onset: Rest Context: Street <Luis Miguel Basurto - Last Filed: 02/21/17 22:31> <Bruce Abreu - Last Filed: 02/22/17 06:57> - General Chief Complaint: Alcohol Ingestion Time Seen by Provider: 02/21/17 16:43 - History of Present Illness Narrative History of Present Illness (Text): 02/21/17 17:13 A 26 year old male, whose past medical history includes alcohol abuse, was brought in by EMS for alcohol intoxication. Patient was found on street and admits to heavy etoh use earlier. Denies any trauma, suicidal ideation, or any physical complaints at this time. (Luis Miguel Basurto) Past Medical History - Provider Review Nursing Documentation Reviewed: Yes - Infectious Disease Hx of Infectious Diseases: None - Cardiac Hx Hypertension: No - Pulmonary Hx Respiratory Disorders: No - Neurological Hx Seizures: No - HEENT Hx HEENT Disorder: No - Renal Hx Renal Disorder: No - Endocrine/Metabolic Hx Endocrine Disorders: No - Hematological/Oncological Hx Blood Disorders: No - Integumentary Hx Dermatological Disorder: No - Musculoskeletal/Rheumatological Hx Fractures: Yes - Gastrointestinal Hx Gastritis: Yes - Genitourinary/Gynecological Hx Sexually Transmitted Diseases: No - Psychiatric Hx Anxiety: Yes Hx Depression: Yes Hx Substance Use: No (pt denies) - Surgical History Other/Comment: LEG SX - Anesthesia Hx Anesthesia: Yes Hx Anesthesia Reactions: No - Suicidal Assessment Feels Threatened In Home Enviroment: No <Luis Miguel Basurto - Last Filed: 02/21/17 22:31> Family/Social History - Physician Review Nursing Documentation Reviewed: Yes Family/Social History: No Known Family HX Smoking Status: Heavy Smoker > 10 Cigarettes Daily Hx Alcohol Use: Yes Hx Substance Use: No (pt denies) Substance used: marijuana <Luis Miguel Basurto - Last Filed: 02/21/17 22:31> Allergies/Home Meds <Luis Miguel Basurto - Last Filed: 02/21/17 22:31> <Bruce Abreu - Last Filed: 02/22/17 06:57> Allergies/Adverse Reactions: Allergies No Known Allergies Allergy (Verified 02/21/17 16:34) Home Medications: Home Meds Medication Instructions Recorded Confirmed Paroxetine HCl [Paxil] 40 mg PO DAILY 11/05/16 02/21/17 busPIRone [Buspar] 15 mg PO HS 11/05/16 02/21/17 Review of Systems - Physician Review All systems were reviewed & negative as marked: Yes - Review of Systems Constitutional: absent: Fevers Respiratory: absent: SOB Psychiatric: absent: Suicidal Ideation <Luis Miguel Basurto - Last Filed: 02/21/17 22:31> Physical Exam - Physical Exam Physical Exam Limitations: Intoxication Vital Signs Reviewed: Yes Appearance: Positive for: Well-Appearing, Non-Toxic, Comfortable Pain Distress: None Mental Status: Positive for: Alert and Oriented X 3 - Systems Exam Head: Present: Atraumatic, Normocephalic Pupils: Present: PERRL Extroacular Muscles: Present: EOMI Conjunctiva: Present: Normal Mouth: Present: Moist Mucous Membranes Respiratory/Chest: Present: Clear to Auscultation, Good Air Exchange. No: Respiratory Distress, Accessory Muscle Use Neurological: Present: GCS=15, CN II-XII Intact, Speech Normal Skin: Present: Warm, Dry, Normal Color. No: Rashes Psychiatric: Present: Alert, Oriented x 3. No: Suicidal Ideation <Luis Miguel Basurto - Last Filed: 02/21/17 22:31> Medical Decision Making <Luis Miguel Basurto - Last Filed: 02/21/17 22:31> <Bruce Abreu - Last Filed: 02/22/17 06:57> ED Course and Treatment: 02/21/17 17:06 Impression: A 26 year old male with alcohol intoxication. Plan: -- Reassess and disposition Prior Visits: Notes and results from previous visits were reviewed. Patient was last seen in the emergency department on 02/21/17 for evaluation of alcohol intoxication. (Luis Miguel Basurto) ED OBSERVATION Date of observation admission: 02/21/17 Time of observation admission: 16:40 <Luis Miguel Basurto - Last Filed: 02/21/17 22:31> Discharge: Yes <Bruce Abreu - Last Filed: 02/22/17 06:57> - Observation admission statement Patient is being placed in observation because:: alcohol intoxication (Luis Miguel Basurto) - Goals of Observation Goals of observation are:: pending sobriety (Luis Miguel Basurto) - Progress Note Progress Note: 02/21/17 18:40 Patient is in no acute distress. 02/21/17 20:30 Patient is resting comfortably, in no distress. 02/21/17 21:34 Patient is sleeping still but arousable though remains clinically intoxicated. 02/21/17 22:31 Patient remains sleeping and intoxicated. Will await sobriety. Case will be endorsed to Dr. Abreu. (Luis Miguel Basurto) 02/21/17 23:00 Case endorsed to me by Dr. Basurto, pending sobriety. Patient sleeping, in no acute distress. 02/22/17 01:00 Pt resting comfortably, in no distress. 02/22/17 03:00 Pt sleeping currently, in no acute distress. 02/22/17 05:00 Pt resting comfortably, no new complaints. 02/22/17 06:00 Pt resting comfortably, no new complaints. (Bruce Abreu) - Scribe Statement The provider has reviewed the documentation as recorded by the Scribe <Luis Miguel Basurto - Last Filed: 02/21/17 22:31> <Bruce Abreu - Last Filed: 02/22/17 06:57> - Scribe Statement Kel Connell Provider Scribe Attestation: All medical record entries made by the Scribe were at my direction and personally dictated by me. I have reviewed the chart and agree that the record accurately reflects my personal performance of the history, physical exam, medical decision making, and the department course for this patient. I have also personally directed, reviewed, and agree with the discharge instructions and disposition. (Luis Miguel Basurto) Disposition/Present on Arrival - Present on Arrival Any Indicators Present on Arrival: No History of DVT/PE: No History of Uncontrolled Diabetes: No Urinary Catheter: No History of Decub. Ulcer: No History Surgical Site Infection Following: None - Disposition Have Diagnosis and Disposition been Completed?: Yes Disposition Time: 16:40 <Luis Miguel Basurto - Last Filed: 02/21/17 22:31> - Present on Arrival Any Indicators Present on Arrival: No - Disposition Have Diagnosis and Disposition been Completed?: Yes Disposition Time: 06:30 <Bruce Abreu - Last Filed: 02/22/17 06:57> - Disposition Diagnosis: Alcohol intoxication Disposition: HOME/ ROUTINE Patient Problems: Current Active Problems Problem Status Onset Alcohol intoxication Acute Condition: GOOD
--- NOTE | 2017-02-21 22:50 | ED PDOC ---
Physical Exam Vital Signs Reviewed: Yes Vital Signs Pulse Resp BP Pulse Ox 02/21/17 18:23 78 18 127/78 98 Temperature: Afebrile Blood Pressure: Normal Pulse: Regular Respiratory Rate: Normal Appearance: Positive for: Well-Appearing, Non-Toxic, Comfortable Pain Distress: None Mental Status: Positive for: Alert and Oriented X 3 Medical Decision Making ED Course and Treatment: 02/21/17 23:00 Case endorsed to me by Dr. Basurto, pending [facility] [place] bed availability, pt accepted on transfer. Disposition/Present on Arrival - Present on Arrival Any Indicators Present on Arrival: No History of DVT/PE: No History of Uncontrolled Diabetes: No Urinary Catheter: No History of Decub. Ulcer: No History Surgical Site Infection Following: None - Disposition Diagnosis: Alcohol intoxication Patient Problems: Current Active Problems Problem Status Onset Alcohol intoxication Acute
[2017-02-22 06:40] VITALS: BP 128/66; PULSE 78; RESP 18; TEMP 97.5; O2SAT 98
== END 2017-02-22 06:57 | disposition home or self-care (01) ==
LOC: ED 16:23 → EROBSV 16:40
PROVIDERS: ADMIT Emergency Medicine; ATTEND Emergency Medicine
DX: F10.129 Alcohol abuse with intoxication, unspecified (principal)
CPT/HCPCS: 99284; G0378

== ENCOUNTER 2017-02-23 16:58 | Observation (INO) | payer OTHER ==
[2017-02-23 16:58] VITALS: BMI 22.7
[2017-02-23 17:08] VITALS: TEMP 98.2
--- NOTE | 2017-02-23 17:08 | ED PDOC ---
Arrival/HPI - General Time Seen by Provider: 02/23/17 17:06 Historian: EMS - History of Present Illness Narrative History of Present Illness (Text): 02/23/17 17:07 26 y/o male, pmh including gastritis, psychiatric history including alcohol and drug abuse, FS 82, biba, c/o publicly intoxicated on the street. Pt. is in the ER, +etoh on breath, no fall or trauma, sleeping, stated that he feels fine, admits been drinking alcohol beverages, no homicidal or suicidal ideation, no auditory or visual hallucinations, no other medical or psychological complaints. Past Medical History - Provider Review Nursing Documentation Reviewed: Yes - Infectious Disease Hx of Infectious Diseases: None - Cardiac Hx Hypertension: No - Pulmonary Hx Respiratory Disorders: No - Neurological Hx Seizures: No - HEENT Hx HEENT Disorder: No - Renal Hx Renal Disorder: No - Endocrine/Metabolic Hx Endocrine Disorders: No - Hematological/Oncological Hx Blood Disorders: No - Integumentary Hx Dermatological Disorder: No - Musculoskeletal/Rheumatological Hx Fractures: Yes - Gastrointestinal Hx Gastritis: Yes - Genitourinary/Gynecological Hx Sexually Transmitted Diseases: No - Psychiatric Hx Anxiety: Yes Hx Depression: Yes Hx Substance Use: No (pt denies) - Surgical History Other/Comment: LEG SX - Anesthesia Hx Anesthesia: Yes Hx Anesthesia Reactions: No - Suicidal Assessment Feels Threatened In Home Enviroment: No Family/Social History - Physician Review Nursing Documentation Reviewed: Yes Family/Social History: Unknown Family HX Smoking Status: Heavy Smoker > 10 Cigarettes Daily Hx Alcohol Use: Yes Hx Substance Use: No (pt denies) Substance used: marijuana Allergies/Home Meds Allergies/Adverse Reactions: Allergies No Known Allergies Allergy (Verified 02/23/17 17:11) Home Medications: Home Meds Medication Instructions Recorded Confirmed Paroxetine HCl [Paxil] 40 mg PO DAILY 11/05/16 02/24/17 busPIRone [Buspar] 15 mg PO HS 11/05/16 02/24/17 Review of Systems - Review of Systems Systems not reviewed;Unavailable: Intoxicated Constitutional: absent: Fatigue, Fevers Eyes: absent: Vision Changes Respiratory: absent: SOB, Cough, Wheezing Cardiovascular: absent: Chest Pain Gastrointestinal: absent: Abdominal Pain, Diarrhea, Nausea, Vomiting Skin: absent: Rash, Pruritis Neurological: absent: Headache, Dizziness, Focal Weakness Psychiatric: absent: Depression, Suicidal Ideation Physical Exam - Physical Exam Physical Exam Limitations: Intoxication Vital Signs Reviewed: Yes Vital Signs Temp Pulse Resp BP Pulse Ox 02/23/17 23:00 76 16 106/74 99 02/23/17 20:00 79 16 101/56 L 95 02/23/17 18:49 80 16 100/58 L 96 02/23/17 17:07 98.2 F 85 20 119/70 95 Temperature: Afebrile Blood Pressure: Normal Pulse: Regular Respiratory Rate: Normal Appearance: Positive for: Well-Appearing, Non-Toxic, Comfortable Pain Distress: None - Systems Exam Head: Present: Atraumatic, Normocephalic, Other (no facial tenderness or swelling, no deformities. ). No: Tenderness, Contusion, Swelling, Ecchymosis, Abrasion, Laceration Pupils: Present: PERRL Extroacular Muscles: Present: EOMI Conjunctiva: Present: Normal Mouth: Present: Moist Mucous Membranes Nose (External): Present: Atraumatic. No: Abrasion, Contusion, Laceration, Lesions Nose (Internal): Present: Normal Inspection, No Active Bleeding. No: Rhinorrhea , Septal Hematoma, Epistaxis Neck: Present: Normal Range of Motion, Trachea Midline. No: MIDLINE TENDERNESS , Paraspinal Tenderness, Lymphadenopathy Respiratory/Chest: Present: Clear to Auscultation, Good Air Exchange. No: Respiratory Distress, Accessory Muscle Use Cardiovascular: Present: Regular Rate and Rhythm, Normal S1, S2. No: Murmurs Abdomen: Present: Normal Bowel Sounds. No: Tenderness, Distention, Peritoneal Signs, Rebound, Guarding Back: Present: Normal Inspection. No: Midline Tenderness, Paraspinal Tenderness Upper Extremity: Present: Normal Inspection, Normal ROM, NORMAL PULSES, Neurovascularly Intact, Capillary Refill < 2s. No: Cyanosis, Edema, Deformity Lower Extremity: Present: Normal Inspection, Normal ROM, Capillary Refill < 2 s. No: Edema, Deformity Neurological: Present: GCS=15, Motor Func Grossly Intact, Memory Normal Skin: Present: Warm, Dry, Normal Color. No: Rashes Psychiatric: Present: Alert, Oriented x 3, Normal Insight, Normal Concentration Medical Decision Making ED Course and Treatment: 02/23/17 17:12 -FS -will monitor - Lab Interpretations Lab Results: Lab Results 02/23/17 17:43: POC Glucose (mg/dL) 83 ED OBSERVATION Discharge: Yes Date of observation admission: 02/23/17 Time of observation admission: 19:32 - Observation admission statement Patient is being placed in observation because:: alcohol intoxication - Goals of Observation Goals of observation are:: sober - Progress Note Progress Note: 02/23/17 20:00 -Pt. is sleeping well, vitally stable, easily arousable 02/23/17 22:00 -Pt. has no medical or psychological complaints, sleeping well and easily arousable. 02/24/17 00:00 -Pt. is sleeping well, vitally stable 02/24/17 01:31 -Pt. is awake, food and drinks given, tolerating po, walking with normal gait and posture, non-intoxicated, will discharge home. -Discharge home with education on follow up with your own pmd within 2 days, return to the ER for any new or worsening signs or symptoms. - PA / CLINICAL PRACTITIONER / Resident Statement MD/DO has reviewed & agrees with the documentation as recorded. Disposition/Present on Arrival - Present on Arrival Any Indicators Present on Arrival: No History of DVT/PE: No History of Uncontrolled Diabetes: No Urinary Catheter: No History of Decub. Ulcer: No History Surgical Site Infection Following: None - Disposition Have Diagnosis and Disposition been Completed?: Yes Diagnosis: Alcohol intoxication Disposition: HOME/ ROUTINE Disposition Time: :31 Patient Plan: Discharge Patient Problems: Current Active Problems Problem Status Onset Alcohol intoxication Acute Condition: GOOD
[2017-02-23 18:50] VITALS: RESP 16
[2017-02-24 00:43] VITALS: BP 106/74; PULSE 76; O2SAT 99
== END 2017-02-24 01:32 | disposition home or self-care (01) ==
LOC: ED 16:58 → EROBSV 19:31
PROVIDERS: ADMIT Emergency Medicine; ATTEND Emergency Medicine
DX: F10.129 Alcohol abuse with intoxication, unspecified (principal)
CPT/HCPCS: 82948; 99283; G0378

== ENCOUNTER 2017-05-18 22:03 | Emergency (ER) | payer MEDICAID, OTHER ==
[2017-05-18 22:06] VITALS: BMI 25.2
[2017-05-18 22:43] VITALS: PULSE 76; TEMP 98.5
[2017-05-18 23:11] LABS: BASO # 0.03 K/mm3 (0.0-2.0); BASO % 0.4 % (0.0-3.0); EOS # 0.1 (0.0-0.7); EOS % 0.6 % (1.5-5.0); GRAN # 4.66 (1.4-6.5); GRAN % 56.9 % (50.0-68.0); HEMATOCRIT 43.3 % (42.0-52.0); MEAN CELL VOLUME 87.8 fl (80.0-105.0); MEAN CORPUSCULAR HEMOGLOBIN 31.2 pg (25.0-35.0); MEAN CORPUSCULAR HGB CONC 35.6 g/dl (31.0-37.0); MEAN PLATELET VOLUME 9.1 fl (7.0-11.0); MONO # 0.5 (0.1-0.6); MONO % 6.1 % (1.0-6.0); RED CELL DISTRIBUTION WIDTH 12.1 % (11.5-14.5); WHITE BLOOD COUNT 8.2 10^3/ul (4.5-11.0)
[2017-05-18 23:23] LABS: ALB/GLOB RATIO 1.6 (1.1-1.8); ALKALINE PHOSPHATASE 69 U/L (38-126); ALT/SGPT 51 U/L (7-56); AST/SGOT 31 U/L (17-59); BILIRUBIN,TOTAL 0.8 mg/dL (0.2-1.3); BLOOD UREA NITROGEN 14 mg/dL (7-21); CALCIUM 10.1 mg/dL (8.4-10.5); CARBON DIOXIDE 27 mmol/L (21-33); CHLORIDE 110 mmol/L (95-110); GFR AFRICAN-AMERICAN > 60; GLUCOSE,RANDOM 101 mg/dL (70-110); POTASSIUM 3.9 mmol/L (3.6-5.0); SODIUM 150 mmol/L (132-148); TOTAL PROTEIN 8.1 g/dL (5.8-8.3)
--- NOTE | 2017-05-19 01:04 | ED PDOC ---
Arrival/HPI - General Chief Complaint: Alcohol Ingestion Time Seen by Provider: 05/18/17 22:05 Historian: Police - History of Present Illness Narrative History of Present Illness (Text): 05/19/17 01:25 26yo male known alcoholic bib [employer] for medical clearance. Per [place] police is under arrest and the want him to be evaluated for medical clearance. They are not sure if he is intoxicated. PT is obtunded, unable to answer. Past Medical History - Provider Review Nursing Documentation Reviewed: Yes - Infectious Disease Hx of Infectious Diseases: None - Cardiac Hx Cardiac Disorders: No - Pulmonary Hx Respiratory Disorders: No - Neurological Hx Neurological Disorder: No - HEENT Hx HEENT Disorder: No - Renal Hx Renal Disorder: No - Endocrine/Metabolic Hx Endocrine Disorders: No - Hematological/Oncological Hx Blood Disorders: No - Integumentary Hx Dermatological Disorder: No - Musculoskeletal/Rheumatological Hx Fractures: Yes - Gastrointestinal Hx Gastritis: Yes - Genitourinary/Gynecological Hx Genitourinary Disorders: No - Psychiatric Hx Anxiety: Yes Hx Depression: Yes Hx Substance Use: No (pt denies) - Surgical History Other/Comment: LEG SX - Anesthesia Hx Anesthesia: Yes Hx Anesthesia Reactions: No - Suicidal Assessment Feels Threatened In Home Enviroment: No Family/Social History - Physician Review Nursing Documentation Reviewed: Yes Family/Social History: Unknown Family HX Smoking Status: Heavy Smoker > 10 Cigarettes Daily Hx Alcohol Use: Yes Hx Substance Use: No (pt denies) Substance used: marijuana Allergies/Home Meds Allergies/Adverse Reactions: Allergies No Known Allergies Allergy (Verified 02/26/17 12:21) Home Medications: Home Meds Medication Instructions Recorded Confirmed Paroxetine HCl [Paxil] 40 mg PO DAILY 11/05/16 02/24/17 busPIRone [Buspar] 15 mg PO HS 11/05/16 02/24/17 Unobtainable 03/06/17 03/06/17 Review of Systems - Review of Systems Systems not reviewed;Unavailable: Intoxicated Physical Exam - Physical Exam Physical Exam Limitations: Intoxication Vital Signs Temp Pulse Resp BP Pulse Ox 05/18/17 22:03 98.5 F 76 18 122/76 98 Temperature: Afebrile Blood Pressure: Normal Pulse: Regular Respiratory Rate: Normal Appearance: Positive for: Well-Appearing, Non-Toxic, Comfortable, Other Pain Distress: None Mental Status: Positive for: other (Intoxicated) - Systems Exam Head: Present: Atraumatic, Normocephalic Pupils: Present: PERRL Extroacular Muscles: Present: EOMI Conjunctiva: Present: Normal Mouth: Present: Moist Mucous Membranes Neck: Present: Normal Range of Motion Respiratory/Chest: Present: Clear to Auscultation, Good Air Exchange. No: Respiratory Distress, Accessory Muscle Use Cardiovascular: Present: Regular Rate and Rhythm, Normal S1, S2. No: Murmurs Abdomen: Present: Normal Bowel Sounds. No: Tenderness, Distention, Peritoneal Signs Back: Present: Normal Inspection Upper Extremity: Present: Normal Inspection. No: Cyanosis, Edema Lower Extremity: Present: Normal Inspection. No: Edema Neurological: Present: GCS=15, CN II-XII Intact, Speech Normal Skin: Present: Warm, Dry, Normal Color. No: Rashes Psychiatric: Present: Intoxicated Medical Decision Making ED Course and Treatment: 05/19/17 01:28 PT's alcohol level was 273 He was discharged to the care of [facility]. - Lab Interpretations Lab Results: 05/18/17 22:50 05/18/17 22:50 Lab Results 05/18/17 22:50: Alcohol, Quantitative 273 H 05/18/17 22:50: Salicylates < 1 L, Acetaminophen < 10.0 L 05/18/17 22:50: Sodium 150 H, Potassium 3.9, Chloride 110, Carbon Dioxide 27, Anion Gap 17, BUN 14, Creatinine 0.9, Est GFR ( Amer) > 60, Est GFR (Non- Af Amer) > 60, Random Glucose 101, Calcium 10.1, Total Bilirubin 0.8, AST 31, ALT 51, Alkaline Phosphatase 69, Total Protein 8.1, Albumin 4.9 H, Globulin 3.1 , Albumin/Globulin Ratio 1.6 05/18/17 22:50: WBC 8.2 D, RBC 4.93, Hgb 15.4, Hct 43.3, MCV 87.8, MCH 31.2, MCHC 35.6, RDW 12.1, Plt Count 226, MPV 9.1, Gran % 56.9, Lymph % (Auto) 36.0 H , Gaines % (Auto) 6.1 H, Eos % (Auto) 0.6 L, Baso % (Auto) 0.4, Gran # 4.66, Lymph # 3.0, Gaines # 0.5, Eos # 0.1, Baso # 0.03 Disposition/Present on Arrival - Present on Arrival Any Indicators Present on Arrival: No History of DVT/PE: No History of Uncontrolled Diabetes: No Urinary Catheter: No History of Decub. Ulcer: No History Surgical Site Infection Following: None - Disposition Have Diagnosis and Disposition been Completed?: Yes Diagnosis: Alcohol abuse with intoxication Disposition: HOME/ ROUTINE Disposition Time: 01:05 Patient Plan: Discharge Patient Problems: Current Active Problems Problem Status Onset Alcohol abuse with intoxication Acute Condition: STABLE Discharge Instructions (ExitCare): Alcohol Intoxication (ED) Additional Instructions: Follow up with your Doctor Join AA and stop drinking Pt is medically cleared for incarceration Referrals: PCP,NO [Primary Care Provider] - Follow up with primary Forms: [employer] (Maori)
[2017-05-19 01:31] VITALS: BP 123/76; RESP 16; O2SAT 99
--- NOTE | 2017-05-19 17:02 | CARD ---
APPROVED REPORT EKG Measurement Heart [id number] <Conclusion> Normal sinus rhythm Normal ECG
== END 2017-05-19 01:34 ==
LOC: ED 22:03
DX: F10.129 Alcohol abuse with intoxication, unspecified (principal); F17.210 Nicotine dependence, cigarettes, uncomplicated

== ENCOUNTER 2017-06-15 11:22 | Emergency (ER) | payer OTHER ==
[2017-06-15 11:25] VITALS: BMI 23.6
--- NOTE | 2017-06-15 11:36 | ED PDOC ---
Arrival/HPI - General Chief Complaint: Alcohol Ingestion Time Seen by Provider: 06/15/17 11:24 Historian: EMS EM Caveat: Intoxicated - History of Present Illness Narrative History of Present Illness (Text): 06/15/17 11:20 A 26 year old male, whose past medical history includes etoh abuse and multiple emergency department visits for alcohol intoxication, presents to the emergency department via EMS [place]. The patient is unable to add any additional history due to intoxication. HPI & ROS limited due to intoxication. Time/Duration: Prior to Arrival Symptom Course: Other Quality: Other (intoxicated) Context: Pedestrian Past Medical History - Provider Review Nursing Documentation Reviewed: Yes - Infectious Disease Hx of Infectious Diseases: None - Cardiac Hx Cardiac Disorders: No - Pulmonary Hx Respiratory Disorders: No - Neurological Hx Neurological Disorder: No - HEENT Hx HEENT Disorder: No - Renal Hx Renal Disorder: No - Endocrine/Metabolic Hx Endocrine Disorders: No - Hematological/Oncological Hx Blood Disorders: No - Integumentary Hx Dermatological Disorder: No - Musculoskeletal/Rheumatological Hx Fractures: Yes - Gastrointestinal Hx Gastritis: Yes - Genitourinary/Gynecological Hx Genitourinary Disorders: No - Psychiatric Hx Anxiety: Yes Hx Depression: Yes Hx Substance Use: No (pt denies) - Surgical History Other/Comment: LEG SX - Anesthesia Hx Anesthesia: Yes Hx Anesthesia Reactions: No - Suicidal Assessment Feels Threatened In Home Enviroment: No Family/Social History - Physician Review Nursing Documentation Reviewed: Yes Family/Social History: No Known Family HX Smoking Status: Heavy Smoker > 10 Cigarettes Daily Hx Alcohol Use: Yes Hx Substance Use: No (pt denies) Substance used: marijuana Allergies/Home Meds Allergies/Adverse Reactions: Allergies No Known Allergies Allergy (Verified 02/26/17 12:21) Home Medications: Home Meds Medication Instructions Recorded Confirmed Paroxetine HCl [Paxil] 60 mg PO DAILY 11/05/16 05/25/17 busPIRone [Buspar] 15 mg PO HS 11/05/16 02/24/17 Unobtainable 03/06/17 06/15/17 Review of Systems - Review of Systems Systems not reviewed;Unavailable: Intoxicated Physical Exam Vital Signs Reviewed: Yes Vital Signs Temp Pulse Resp BP Pulse Ox 06/15/17 19:01 85 18 113/74 97 06/15/17 16:14 97.7 F 84 19 107/59 L 98 06/15/17 15:48 88 18 113/58 L 98 06/15/17 13:22 98.5 F 96 H 19 104/61 95 06/15/17 11:22 98.8 F 89 20 114/57 L 95 Temperature: Afebrile Blood Pressure: Hypotensive Pulse: Regular Respiratory Rate: Normal Appearance: Positive for: Non-Toxic, Other (disheveled; AOB is present) Pain Distress: None Mental Status: Positive for: other (intoxicated) - Systems Exam Head: Present: Atraumatic, Normocephalic Pupils: Present: PERRL, Other (5mm bilateral) Conjunctiva: Present: Normal Mouth: Present: Moist Mucous Membranes Pharnyx: Present: Normal. No: ERYTHEMA, EXUDATE Neck: Present: Normal Range of Motion Respiratory/Chest: Present: Clear to Auscultation, Good Air Exchange. No: Respiratory Distress, Accessory Muscle Use Cardiovascular: Present: Regular Rate and Rhythm, Normal S1, S2. No: Murmurs Abdomen: Present: Normal Bowel Sounds. No: Tenderness, Distention, Peritoneal Signs Back: Present: Normal Inspection Upper Extremity: Present: Normal Inspection. No: Cyanosis, Edema Lower Extremity: Present: Normal Inspection. No: Edema Neurological: Present: GCS=15, CN II-XII Intact, Speech Normal Skin: Present: Warm, Dry, Normal Color. No: Rashes Psychiatric: Present: Intoxicated Medical Decision Making ED Course and Treatment: 06/15/17 11:39 Impression: A 26 year old male who is intoxicated with no evidence of trauma. Plan: -- Reassess and disposition Progress Notes: 06/15/17 19:54 The patient has been observed in the ED for more than 8 hours till full sobriety. Vitals are unremarkable. Patient admits to having drunk a significant amount of alcohol earlier. He is now fully sober without complaints with normal speech and gait and is awake, alert, and oriented to person, place, and time. Ok for d/c. - Scribe Statement The provider has reviewed the documentation as recorded by the Scribe Anni Rodriguez Provider Scribe Attestation: All medical record entries made by the Scribe were at my direction and personally dictated by me. I have reviewed the chart and agree that the record accurately reflects my personal performance of the history, physical exam, medical decision making, and the department course for this patient. I have also personally directed, reviewed, and agree with the discharge instructions and disposition. Disposition/Present on Arrival - Present on Arrival Any Indicators Present on Arrival: No History of DVT/PE: No History of Uncontrolled Diabetes: No Urinary Catheter: No History of Decub. Ulcer: No History Surgical Site Infection Following: None - Disposition Have Diagnosis and Disposition been Completed?: Yes Diagnosis: Alcohol abuse with intoxication Disposition: HOME/ ROUTINE Disposition Time: 20:00 Patient Plan: Discharge Condition: GOOD Discharge Instructions (ExitCare): Alcohol Intoxication (ED), Abuse of Alcohol (ED) Additional Instructions: Stop alcohol abuse. Recommend inpatient detox. Return to the emergency department if any new concerning symptoms. Referrals: Lanre Cantor, [Primary Care Provider] - Follow up with primary Alcoholics Anonymous [Outside] - Follow up with primary [facility] [place] [Outside] - Follow up with primary Forms: [employer] (Cook Islander)
[2017-06-15 16:16] VITALS: TEMP 97.7
[2017-06-15 19:02] VITALS: BP 113/74; PULSE 85; RESP 18
[2017-06-15 20:20] VITALS: O2SAT 99
== END 2017-06-15 20:10 | disposition home or self-care (01) ==
LOC: ED 11:22
DX: F10.129 Alcohol abuse with intoxication, unspecified (principal); F17.210 Nicotine dependence, cigarettes, uncomplicated

== ENCOUNTER 2017-06-16 00:02 | Emergency (ER) | payer MEDICAID, OTHER ==
[2017-06-16 00:14] VITALS: BMI 23.5
--- NOTE | 2017-06-16 00:19 | ED PDOC ---
Arrival/HPI - General Historian: Patient, EMS EM Caveat: Intoxicated - History of Present Illness Time/Duration: 1-3 hours Activities at Onset: Rest, Light Context: Other (Light rail station[place] - General Chief Complaint: Alcohol Ingestion - History of Present Illness Narrative History of Present Illness (Text): 06/16/17 00:11 Mr. Mercado is a 23 year old male with a past medical history significant for alcohol intoxication/withdrawal and multiple visits to the ED for similar complaints who presents to the [facility] ED [place]. Patient discharged from ED several hours [employer] after presenting for alcohol intoxication. ROS and HPI limited due to acute intoxication. (Bob Zendejas) Past Medical History - Provider Review Nursing Documentation Reviewed: Yes - Travel History Have you recently traveled outside [place] w/in the past 3 mons?: No - Past History Past History: No Previous - Infectious Disease Hx of Infectious Diseases: None - Tetanus Immunization Tetanus Immunization: Unknown - Cardiac Hx Cardiac Disorders: No - Pulmonary Hx Respiratory Disorders: No - Neurological Hx Neurological Disorder: No - HEENT Hx HEENT Disorder: No - Renal Hx Renal Disorder: No - Endocrine/Metabolic Hx Endocrine Disorders: No - Hematological/Oncological Hx Blood Disorders: No - Integumentary Hx Dermatological Disorder: No - Musculoskeletal/Rheumatological Hx Fractures: Yes - Gastrointestinal Hx Gastritis: Yes - Genitourinary/Gynecological Hx Genitourinary Disorders: No - Psychiatric Hx Anxiety: Yes Hx Depression: Yes Hx Substance Use: No (pt denies) - Surgical History Other/Comment: LEG SX - Anesthesia Hx Anesthesia: Yes Hx Anesthesia Reactions: No - Suicidal Assessment Feels Threatened In Home Enviroment: No Family/Social History - Physician Review Nursing Documentation Reviewed: Yes Family/Social History: Unknown Family HX Smoking Status: Heavy Smoker > 10 Cigarettes Daily Hx Alcohol Use: Yes Frequency of alcohol use: Daily Hx Substance Use: No (pt denies) Substance used: marijuana Allergies/Home Meds Allergies/Adverse Reactions: Allergies No Known Allergies Allergy (Verified 06/16/17 00:04) Home Medications: Home Meds Medication Instructions Recorded Confirmed Unobtainable 03/06/17 06/16/17 Review of Systems - Review of Systems Systems not reviewed;Unavailable: Intoxicated Physical Exam - Physical Exam Physical Exam Limitations: Intoxication Vital Signs Reviewed: Yes Temperature: Afebrile Blood Pressure: Normal Pulse: Regular Respiratory Rate: Normal Appearance: Positive for: Comfortable, Other (Intoxicated) Pain Distress: None Mental Status: Positive for: other (Intoxicated) - Systems Exam Head: Present: Atraumatic, Normocephalic Pupils: Present: PERRL Conjunctiva: Present: Normal Mouth: Present: Moist Mucous Membranes Neck: Present: Normal Range of Motion Respiratory/Chest: Present: Clear to Auscultation, Good Air Exchange. No: Respiratory Distress, Accessory Muscle Use Cardiovascular: Present: Regular Rate and Rhythm, Normal S1, S2. No: Murmurs Abdomen: Present: Normal Bowel Sounds. No: Tenderness, Distention, Peritoneal Signs Back: Present: Normal Inspection Upper Extremity: Present: Normal Inspection. No: Cyanosis, Edema Lower Extremity: Present: Normal Inspection. No: Edema Neurological: Present: Other Skin: Present: Warm, Dry, Normal Color. No: Rashes Psychiatric: Present: Intoxicated. No: Alert, Oriented x 3, Normal Insight, Normal Concentration Vital Signs Temp Pulse Resp BP Pulse Ox 06/16/17 04:30 75 16 124/82 97 06/16/17 03:30 97.8 F 77 16 125/78 97 Medical Decision Making ED Course and Treatment: Patient Seen With Resident: In agreement with resident note which contains more details about the patient. Patient was seen and evaluated with resident. Came up with plan and treatment together. A 26 year old male with alcohol intoxication. Additional HPI as noted by resident. No acute findings on physical exam. Will reassess patient. (Kristopher Martin) 06/16/17 00:22 Impression: 23 year old male with a past medical history significant for alcohol intoxication/withdrawal and multiple visits to the ED for similar complaints who presents to the [facility] ED [place] Plan: -POC glucose -Reassess and disposition Prior Visits: Patient seen and evaluated multiple times for alcohol intoxication/withdrawal (Bob Zendejas) Disposition/Present on Arrival - Present on Arrival Any Indicators Present on Arrival: No History of DVT/PE: No History of Uncontrolled Diabetes: No Urinary Catheter: No History of Decub. Ulcer: No History Surgical Site Infection Following: None - Disposition Have Diagnosis and Disposition been Completed?: Yes Disposition Time: 05:40 Patient Plan: Discharge - Disposition Diagnosis: Alcohol abuse Disposition: HOME/ ROUTINE Patient Problems: Current Active Problems Problem Status Onset Alcohol abuse Acute Condition: STABLE Discharge Instructions (ExitCare): Alcohol Intoxication (ED), Abuse of Alcohol (ED), Alcohol Dependence (ED) Additional Instructions: Mr. Mercado, thank you for letting us take care of you today. Your provider was Dr. Martin. You were treated for alcohol intoxication. The emergency medical care you received today was directed at your acute symptoms. If you were prescribed any medication, please fill it and take as directed. It may take several days for your symptoms to resolve. Return to the Emergency Department if your symptoms worsen, do not improve, or if you have any other problems. Please contact your doctor or call one of the physicians/clinics you have been referred to that are listed on the Patient Visit Information form that is included in your discharge packet. Bring any paperwork you were given at discharge with you along with any medications you are taking to your follow up visit. Our treatment cannot replace ongoing medical care by a primary care provider (PCP) outside of the emergency department. PLEASE FOLLOW UP WITH YOUR PRIMARY CARE DOCTOR WITHIN ONE WEEK Thank you for allowing the [facility] team to be part of your care today. Referrals: Jordan Rosas MD [Primary Care Provider] - Follow up with primary Forms: [employer] (Kazakh)
[2017-06-16 04:59] VITALS: RESP 16; TEMP 97.8
[2017-06-16 06:06] VITALS: BP 127/79; PULSE 73; O2SAT 98
== END 2017-06-16 06:07 | disposition home or self-care (01) ==
LOC: ED 00:02
DX: F10.129 Alcohol abuse with intoxication, unspecified (principal); F17.210 Nicotine dependence, cigarettes, uncomplicated

== ENCOUNTER 2017-08-19 20:43 | Emergency (ER) | payer MEDICAID ==
[2017-08-19 20:44] VITALS: BMI 23.6
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
[2017-08-19] MEDS ORDERED: Multivitamin (MVI) 10 ML, Thiamine 100 MG, Folic Acid 1 MG in Sodium Chloride 0.9% 1,00... IV ONE (21:04)
[2017-08-19 21:31] LABS: BASO # 0.02 K/mm3 (0.0-2.0); BASO % 0.3 % (0.0-3.0); EOS # 0.2 (0.0-0.7); EOS % 2.5 % (1.5-5.0); GRAN # 2.94 (1.4-6.5); GRAN % 48.2 % (50.0-68.0); HEMOGLOBIN 14.2 g/dL (14.0-18.0); LYMPH # 2.5 (1.2-3.4); MEAN CELL VOLUME 90.6 fl (80.0-105.0); MEAN CORPUSCULAR HEMOGLOBIN 31.1 pg (25.0-35.0); MEAN CORPUSCULAR HGB CONC 34.4 g/dl (31.0-37.0); MEAN PLATELET VOLUME 9.6 fl (7.0-11.0); MONO # 0.5 (0.1-0.6); RBC 4.56 10^6/uL (3.5-6.1); RED CELL DISTRIBUTION WIDTH 13.1 % (11.5-14.5); WHITE BLOOD COUNT 6.1 10^3/ul (4.5-11.0)
[2017-08-19 21:41] LABS: ALB/GLOB RATIO 1.5 (1.1-1.8); ALBUMIN 4.5 g/dL (3.0-4.8); ALT/SGPT 56 U/L (7-56); AST/SGOT 48 U/L (17-59); BLOOD UREA NITROGEN 17 mg/dL (7-21); CALCIUM 10.1 mg/dL (8.4-10.5); GFR AFRICAN-AMERICAN > 60; GFR NON-AFRICAN AMERICAN > 60
[2017-08-20 05:11] VITALS: RESP 18; TEMP 98.2
[2017-08-20 07:20] VITALS: BP 124/76; PULSE 86; O2SAT 100
== END 2017-08-20 07:50 | disposition home or self-care (01) ==
LOC: ED 20:43
DX: F10.129 Alcohol abuse with intoxication, unspecified (principal); F17.210 Nicotine dependence, cigarettes, uncomplicated
CPT/HCPCS: 80053; 80320; 82948; 85025; 96360; 99284; J3411; J7040

== ENCOUNTER 2018-01-29 02:51 | Emergency (ER) | payer MEDICAID, OTHER ==
[2018-01-29 02:51] VITALS: BMI 21.9
--- NOTE | 2018-01-29 03:24 | ED PDOC ---
Arrival/HPI - General Chief Complaint: Alcohol Ingestion Time Seen by Provider: 01/29/18 03:17 Historian: Patient - History of Present Illness Narrative History of Present Illness (Text): 01/29/18 03:23 A 27 year old male, with no significant past medical history, presents to the emergency department for intoxication. Patient reports he fell asleep waiting for the lightrail. Patient denies any abdominal pain, nausea, vomiting, or any other complaints at this time. Patient offered to sleep here in the ER until sobriety and patient accepts. PMD: Dr. Jaida Mclean Past Medical History - Provider Review Nursing Documentation Reviewed: Yes - Infectious Disease Hx of Infectious Diseases: None - Psychiatric Hx Substance Use: (unknown) - Anesthesia Hx Anesthesia: No Family/Social History - Physician Review Nursing Documentation Reviewed: Yes Family/Social History: No Known Family HX Smoking Status: Unknown If Ever Smoked Hx Alcohol Use: Yes (unknown) Hx Substance Use: (unknown) Allergies/Home Meds Allergies/Adverse Reactions: Allergies No Known Allergies Allergy (Verified 01/29/18 03:00) Home Medications: Home Meds Medication Instructions Recorded Confirmed Unobtainable 09/10/16 01/29/18 Review of Systems - Physician Review All systems were reviewed & negative as marked: Yes - Review of Systems Gastrointestinal: absent: Abdominal Pain, Nausea, Vomiting Psychiatric: Other (intoxicated) Physical Exam Vital Signs Reviewed: Yes Vital Signs Temp Pulse Resp BP Pulse Ox 01/29/18 05:27 76 18 97 01/29/18 03:00 98.7 F 71 18 110/57 L 95 Appearance: Positive for: Other (intoxicated) - Systems Exam Head: Present: Atraumatic, Normocephalic Respiratory/Chest: Present: Clear to Auscultation, Good Air Exchange. No: Respiratory Distress, Accessory Muscle Use Cardiovascular: Present: Regular Rate and Rhythm, Normal S1, S2. No: Murmurs Abdomen: No: Tenderness, Distention, Peritoneal Signs Upper Extremity: Present: Normal Inspection. No: Cyanosis, Edema Lower Extremity: Present: Normal Inspection. No: Edema Neurological: Present: GCS=15, CN II-XII Intact, Speech Normal Skin: Present: Warm, Dry, Normal Color. No: Rashes Psychiatric: Present: Intoxicated Medical Decision Making ED Course and Treatment: 01/29/18 03:24 Impression: 27 year old male with intoxication. Plan: -- Sobriety -- Reassess and disposition Prior Visits: Notes and results from previous visits were reviewed. Patient was last seen in the emergency department on 09/16/2017 for possible abuse. Patient diagnosed with alcohol abuse with intoxication. Progress Notes: Patient became progressively more awake and alert throughout ED course. At time of discharge he was AAOx3 and ambulating without difficulty. - Scribe Statement The provider has reviewed the documentation as recorded by the Linda Mccann Provider Scribe Attestation: All medical record entries made by the Scribe were at my direction and personally dictated by me. I have reviewed the chart and agree that the record accurately reflects my personal performance of the history, physical exam, medical decision making, and the department course for this patient. I have also personally directed, reviewed, and agree with the discharge instructions and disposition. Disposition/Present on Arrival - Present on Arrival Any Indicators Present on Arrival: No History of DVT/PE: No History of Uncontrolled Diabetes: No Urinary Catheter: No History of Decub. Ulcer: No History Surgical Site Infection Following: None - Disposition Have Diagnosis and Disposition been Completed?: Yes Diagnosis: Alcohol intoxication Disposition: HOME/ ROUTINE Disposition Time: 06:00 Patient Problems: Current Active Problems Problem Status Onset Alcohol intoxication Acute Condition: GOOD Discharge Instructions (ExitCare): Alcohol Abuse and Alcoholism (DC) Additional Instructions: VIRAJ LEE, thank you for letting us take care of you today. Your provider was Chelo Peters MD and you were treated for ETOH. The emergency medical care you received today was directed at your acute symptoms. If you were prescribed any medication, please fill it and take as directed. It may take several days for your symptoms to resolve. Return to the Emergency Department if your symptoms worsen, do not improve, or if you have any other problems. Please contact your doctor or call one of the physicians/clinics you have been referred to that are listed on the Patient Visit Information form that is included in your discharge packet. Bring any paperwork you were given at discharge with you along with any medications you are taking to your follow up visit. Our treatment cannot replace ongoing medical care by a primary care provider outside of the emergency department. Thank you for allowing the [facility] team to be part of your care today. If you had an X-Ray or CT scan: A Radiologist will review the ED reading if any change in treatment is needed we will contact you. If you had a blood, urine, or wound culture: It will take several days for the results, if any change in treatment is needed we will contact you. If you had an STI test: It will take 48 hours for the results. Please call after 1 week if you have not heard back. Referrals: Jaida Mclean MD [Primary Care Provider] - Follow up with primary Forms: Loop Survey (Irish)
[2018-01-29 03:50] VITALS: RESP 18
[2018-01-29 05:31] VITALS: O2SAT 97
[2018-01-29 07:33] VITALS: BP 98/54; PULSE 83; TEMP 97.6
== END 2018-01-29 07:32 | disposition home or self-care (01) ==
LOC: ED 02:51 → MERGE 02:51 → ED 07:32
DX: F10.129 Alcohol abuse with intoxication, unspecified (principal)

== ENCOUNTER 2018-01-30 18:27 | Emergency (ER) | payer MEDICAID ==
[2018-01-30 18:34] VITALS: BMI 25.8
--- NOTE | 2018-01-30 21:09 | ED PDOC ---
Arrival/HPI - General Historian: Patient, EMS <Elvia Stone - Last Filed: 01/30/18 21:19> <Kristopher Pascal - Last Filed: 01/31/18 05:58> - General Chief Complaint: Alcohol Ingestion Time Seen by Provider: 01/30/18 18:48 - History of Present Illness Narrative History of Present Illness (Text): 01/30/18 21:06 29-year-old male presents today brought in by ambulance for alcohol intoxication. Per EMS patient was found sleeping within a construction site. They state there was no drug paraphernalia on site. They state that the patient was smelling of alcohol. per EMS on scene the patient was combative and was restrained and brought into the hospital with police. Patient is alert and denies any complaints. He does admit to drinking alcohol today. Patient denies any trauma or injury. pt denies headaches, denies abdominal pain. denies any complaints. states he wants to go home. (Elvia Stone) Past Medical History - Provider Review Nursing Documentation Reviewed: Yes - Travel History Have you recently traveled outside [place] w/in the past 3 mons?: No - Infectious Disease Hx of Infectious Diseases: None - Psychiatric Hx Substance Use: No (unknown.) <Elvia Stone - Last Filed: 01/30/18 21:19> Family/Social History - Physician Review Nursing Documentation Reviewed: Yes Family/Social History: Unknown Family HX Smoking Status: Former Smoker Hx Alcohol Use: Yes Frequency of alcohol use: Daily Hx Substance Use: No (unknown.) <Elvia Stone - Last Filed: 01/30/18 21:19> Allergies/Home Meds <Elvia Stone - Last Filed: 01/30/18 21:19> <Kristopher Pascal - Last Filed: 01/31/18 05:58> Allergies/Adverse Reactions: Allergies No Known Allergies Allergy (Verified 01/30/18 18:34) Home Medications: Home Meds Medication Instructions Recorded Confirmed Unobtainable 01/31/18 01/31/18 Review of Systems - Review of Systems Constitutional: absent: Fatigue, Fevers Respiratory: absent: SOB, Cough Cardiovascular: absent: Chest Pain Gastrointestinal: absent: Abdominal Pain, Nausea, Vomiting Musculoskeletal: absent: Arthralgias, Back Pain, Neck Pain Skin: absent: Rash Neurological: absent: Headache, Dizziness Psychiatric: absent: Anxiety, Depression, Suicidal Ideation <Elvia Stone - Last Filed: 01/30/18 21:19> Physical Exam Vital Signs Reviewed: Yes Temperature: Afebrile Blood Pressure: Normal Pulse: Regular Respiratory Rate: Normal Appearance: Positive for: Well-Appearing, Non-Toxic, Comfortable Pain Distress: None Mental Status: Positive for: Alert and Oriented X 3 - Systems Exam Head: Present: Atraumatic Pupils: Present: PERRL Extroacular Muscles: Present: EOMI Mouth: Present: Moist Mucous Membranes Neck: Present: Normal Range of Motion Respiratory/Chest: Present: Clear to Auscultation, Good Air Exchange. No: Respiratory Distress, Accessory Muscle Use Cardiovascular: Present: Regular Rate and Rhythm, Normal S1, S2. No: Murmurs Abdomen: No: Tenderness, Rebound, Guarding Back: Present: Normal Inspection. No: Midline Tenderness, Paraspinal Tenderness Upper Extremity: Present: Normal ROM Lower Extremity: Present: Normal ROM Neurological: Present: GCS=15, Speech Normal Skin: Present: Warm, Dry, Normal Color. No: Rashes Psychiatric: Present: Alert, Oriented x 3 <Elvia Stone - Last Filed: 01/30/18 21:19> Vital Signs Temp Pulse Resp BP Pulse Ox 01/31/18 05:21 72 18 117/62 97 01/30/18 21:48 18 96 01/30/18 18:31 97.6 F 88 18 112/66 99 Medical Decision Making <Elvia Stone - Last Filed: 01/30/18 21:19> <Kristopher Pascal - Last Filed: 01/31/18 05:58> ED Course and Treatment: 01/30/18 21:10 andrew perales presents with acute alcohol intoxication. admits to drinking alcohol today. denies Si or HI, denies any complaints. denies trauma or injury. fingerstick; 81 while in the ER pt became agitated, started attacking staff, spitting and was placed into 4 point restraints. pt was given 1mg of ativan IM. pt states his name is Chucho Mercado but will not give a date of . 01/30/18 21:11 case signed out to dr. pascal pending re-evaluation, sobriety, disposition. (Elvia Stone) 01/31/18 05:51 Pt awake, alert, ambulating with steady again. Clinically sober, in no acute distress. Pt stable for d/c. (Kristopher Pascal) - Medication Orders Current Medication Orders: Discontinued Medications Lorazepam (Ativan) 1 mg IM ONCE ONE PRN Reason: Protocol Stop: 01/30/18 19:41 Lorazepam (Ativan) 2 mg IM ONCE ONE PRN Reason: Protocol Stop: 01/30/18 19:41 Lorazepam (Ativan) 1 mg IM ONCE ONE PRN Reason: Protocol Stop: 01/30/18 19:41 Last Admin: 01/30/18 19:44 Dose: 1 mg IM Administration Charges Document 01/30/18 19:44 IT (Rec: 01/30/18 20:38 IT [id number]) Injection Site MAR Injection Site Left Deltoid Charges for Administration # of IM Administrations 1 Disposition/Present on Arrival - Present on Arrival History of DVT/PE: No History of Uncontrolled Diabetes: No Urinary Catheter: No History of Decub. Ulcer: No History Surgical Site Infection Following: None <Elvia Stone - Last Filed: 01/30/18 21:19> - Present on Arrival Any Indicators Present on Arrival: No - Disposition Have Diagnosis and Disposition been Completed?: Yes Disposition Time: 05:57 Patient Plan: Discharge <Kristopher Pascal - Last Filed: 01/31/18 05:58> - Disposition Diagnosis: Alcohol intoxication Disposition: HOME/ ROUTINE Condition: STABLE Discharge Instructions (ExitCare): Alcohol Abuse and Alcoholism (DC) Referrals: Alcoholics Anonymous [Outside] - Follow up with primary Forms: Ship It Bag Check (Nigerien)
[2018-01-31 06:10] VITALS: BP 128/63; PULSE 77; RESP 17; TEMP 98.2; O2SAT 98
== END 2018-01-31 06:09 | disposition home or self-care (01) ==
LOC: MERGE 18:27 → ED 18:27
DX: F10.129 Alcohol abuse with intoxication, unspecified (principal)
CPT/HCPCS: 96372; 99284; J2060